=== PATIENT | male | born 1950 | race Caucasian/White ===

== ENCOUNTER → 2017-10-16 | Outpatient (REF) | payer BC, MEDICARE ==
[~2017-10-16] MED LIST: ALB18R INH; ALLO-2 PO; AMOX-559 PO; ATOR20TA22 PO; ATOR20TA65 PO; AZIT-1 PO; CLO75 PO; CLOP75TA43 PO; DIPH-1 PO; DOCU-202 PO; FISH OIL1 CAP PO; FLU45SYR17 IM; FOLI-68 PO; HYDR-2966 PO; INDO-1 PO; LISI-362 PO; LISI20TA29 PO; METO200T12 PO; MULT-1319 PO; NIT4 SL; ONDA4TAB PO; ONDA4TAB9 PO; PANT40TA65 PO; PER PO; POTA20TA94 PO; PRED20TA6 PO
[2017-10-16 14:57] LABS: PLATELET COUNT, AUTOMATED 288 K/uL (150-450)
== END ==
PROVIDERS: ATTEND Nurse Practitioner Family
DX: R19.7 Diarrhea, unspecified (principal)
CPT/HCPCS: 82040; 82247; 82310; 82374; 82435; 82565; 82947; 84075; 84132; 84155; 84295; 84450; 84460; 84520; 85025

== ENCOUNTER 2017-10-18 09:28 | Emergency (ER) | payer MEDICARE, BC ==
[~2017-10-18 09:28] MED LIST changes: -ALB18R INH; -AZIT-1 PO; -DIPH-1 PO; -ONDA4TAB PO
--- NOTE | 2017-10-18 09:30 | ER Report ---
History and Physical Time Seen By MD: 09:29 HPI/ROS CHIEF COMPLAINT: Diarrhea HISTORY OF PRESENT ILLNESS: Patient is a 67-year-old male who presents emergency department for proximally 5-6 days worth of watery diarrhea without abdominal pain. He denies nausea or vomiting. He's having multiple watery stools per day denies any blood or mucus in the stool. Patient is currently on Zithromax antibiotic for treatment of "pneumonia" along with an albuterol inhaler. Patient recently did complete a cruise line vacation. There is no history of diarrhea outbreak on the cruise that he is aware of. His spouse is also symptom-free. Patient denies fevers or chills he denies chest pain or shortness of breath. REVIEW OF SYSTEMS: Constitutional: No fever, no chills. Eyes: No discharge. ENT: No sore throat. Cardiovascular: No chest pain, no palpitations. Respiratory: No cough, no shortness of breath. Gastrointestinal: No abdominal pain, profuse watery diarrhea. Genitourinary: No hematuria. Musculoskeletal: No back pain. Skin: No rashes. Neurological: No headache. Allergies: Coded Allergies: No Known Drug Allergies (Verified , 10/18/17) Home Meds Active Scripts Diphenoxylate Hcl/Atropine (LOMOTIL TABLET) 1 Each Tablet, 1 EACH PO Q4H for diarrhea, #16 TAB 0 Refills Prov:LARISSA LIU MD 10/18/17 Atorvastatin Calcium (ATORVASTATIN CALCIUM) 20 Mg Tablet, 1 TAB PO QDAY, #30 TAB patient needs to schedule an appointment for further refills Prov:GAVIN BARNHART MD 10/14/17 Metoprolol Succinate (METOPROLOL SUCCINATE) 200 Mg Tab.er.24h, 1 TAB PO QDAY, # 90 TAB 1 Refill Prov:GAVIN BARNHART MD 07/01/17 Clopidogrel Bisulfate (PLAVIX) 75 Mg Tablet, 1 TAB PO QDAY, #90 TAB 1 Refill Prov:GAVIN BARNHART MD 03/18/17 Lisinopril (LISINOPRIL) 20 Mg Tablet, 20 MG PO QDAY, #90 TAB 3 Refills Prov:GAVIN BARNHART MD 10/27/16 Reported Medications Albuterol Sulfate (VENTOLIN HFA) 18 Gm Inh, 1-2 PUFF INH 3-4XD, INH 10/18/17 Azithromycin (ZITHROMAX) 250 Mg Tablet, 1 TAB PO QDAY, TAB 10/18/17 Ondansetron (ZOFRAN ODT) 4 Mg Tab.rapdis, 4 MG PO Q12H, TAB.TREASURE 10/18/17 Discontinued Scripts Pantoprazole Sodium (PANTOPRAZOLE SODIUM) 40 Mg Tablet.dr, 1 TAB PO QDAY, #90 TAB.SR 1 Refill Prov:GAVIN BARNHART MD 03/18/17 Nitroglycerin (NITROSTAT) 0.4 Mg Subl, 1 TAB SL Q5MIN Y for chest pain, #30 TAB 0 Refills Take one tab every 5 minutes for chest pain up to 3 times. If chest pain continues go to the ER. Prov:EHSAN QUINONEZ APRN DURABILITY ENGINEER-C 01/05/15 Past Medical/Surgical History Past medical history for hypertension. History of hypercholesterolemia Hx Smoking: Yes (SMOKED 1 PPD FOR 20 YEARS.) Smoking Status: Former Smoker Hx Alcohol Use: Yes Constitutional Vital Sign - Last 24 Hours 10/18/17 10/18/17 10/18/17 10/18/17 09:38 09:39 09:58 10:00 Temp 97.6 Pulse 86 Resp 18 B/P (MAP) 183/108 (133) 183/108 185/103 (130) Pulse Ox 91 91 O2 Delivery Room Air 10/18/17 10/18/17 10/18/17 10/18/17 10:37 10:58 11:00 11:15 Pulse 71 73 B/P (MAP) 187/106 (133) 200/110 (140) Pulse Ox 91 94 10/18/17 10/18/17 11:30 12:30 Pulse 73 B/P (MAP) 166/99 (121) 170/95 (120) Pulse Ox 95 Physical Exam General/Constitutional: Patient is awake, alert, nontoxic and in no acute respiratory distress. Head: Normocephalic and atraumatic. Eyes: Conjunctival clear, Pupils are equal and reactive to light. Extraocular muscles are intact and symmetrical. Sclera are clear and anicteric. Ears:External canals are clear. Tympanic membranes are clear with normal landmarks and light reflex. Nares: No rhinorrhea or bleeding. Turbinates are pink and moist. Oropharyngeal: Mucous membranes are moist. Neck: Supple, no adenopathy. Cardiovascular: Heart is regular rate and rhythm without audible murmurs, rubs or gallops. Pulmonary: Lungs are clear to auscultation bilaterally. There are no wheezes, rales, or rhonchi. Chest rise is symmetrical Abdomen: Soft, nontender, no guarding or peritoneal signs. Extremities: No gross deformities, No peripheral cyanosis. Able to move all 4 extremities. Neuro: Alert and oriented X3, Cranial nerves 2 thru 12 are intact and symmetrical. Patient has normal gait. Skin: No rashes, skin is warm dry and well perfused. Medical Decision Making Data Points Result Diagram: 10/18/17 0945 10/18/17 0945 Laboratory Hematology Test 10/18/17 09:45 10/18/17 10:28 Red Blood Count 4.78 M/uL (4.00-5.60) Mean Corpuscular Volume 103.6 fL (80.0-96.0) Mean Corpuscular Hemoglobin 35.7 pg (26.0-33.0) Mean Corpuscular Hemoglobin Concent 34.4 g/dL (32.0-36.0) Red Cell Distribution Width 13.6 % (11.5-14.5) Mean Platelet Volume 10.0 fL (7.2-11.1) Neutrophils (%) (Auto) 77.0 % (39.4-72.5) Lymphocytes (%) (Auto) 12.1 % (17.6-49.6) Monocytes (%) (Auto) 10.2 % (4.1-12.4) Eosinophils (%) (Auto) 0.3 % (0.4-6.7) Basophils (%) (Auto) 0.4 % (0.3-1.4) Nucleated RBC Relative Count (auto) 0.0 /100WBC Neutrophils # (Auto) 7.5 K/uL (2.0-7.4) Lymphocytes # (Auto) 1.2 K/uL (1.3-3.6) Monocytes # (Auto) 1.0 K/uL (0.3-1.0) Eosinophils # (Auto) 0.0 K/uL (0.0-0.5) Basophils # (Auto) 0.0 K/uL (0.0-0.1) Nucleated RBC Absolute Count (auto) 0.00 K/uL Sodium Level 138 mmol/L (137-145) Potassium Level 3.0 mmol/L (3.5-5.0) Chloride Level 102 mmol/L (98-107) Carbon Dioxide Level 24 mmol/L (22-30) Blood Urea Nitrogen 9 mg/dl (9-21) Creatinine 0.70 mg/dl (0.66-1.25) Glomerular Filtration Rate Calc > 60.0 Random Glucose 109 mg/dl (75-110) Calcium Level 8.8 mg/dl (8.4-10.2) Total Bilirubin 1.4 mg/dl (0.2-1.3) Aspartate Amino Transf (AST/SGOT) 49 U/L (0-35) Alanine Aminotransferase (ALT/SGPT) 47 U/L (0-56) Alkaline Phosphatase 131 U/L (0-126) Total Protein 7.7 gm/dl (6.3-8.2) Albumin 3.6 g/dl (3.5-5.0) Lipase 253 U/L (23-300) Helicobacter pylori IgG Antibody Negative (NEGATIVE) Urine Color Koki Urine Clarity Clear Urine pH 5.0 pH (4.8-9.5) Urine Specific [place] 1.023 Urine Protein Negative mg/dL (NEGATIVE) Urine Glucose (UA) Negative mg/dL (NEGATIVE) Urine Ketones Trace mg/dL (NEGATIVE) Urine Blood Negative (NEGATIVE) Urine Nitrite Negative (NEGATIVE) Urine Bilirubin Negative (NEGATIVE) Urine Urobilinogen 4.0 mg/dL (0.2-1.9) Urine Leukocyte Esterase Negative (NEGATIVE) Urine RBC None /HPF (0-2/HPF) Urine WBC 3 /HPF (0-5/HPF) Urine Squamous Epithelial Cells None /LPF (</=FEW) Urine Bacteria Few /HPF (NONE-FEW) Urine Hyaline Casts Few /LPF (NONE-FEW) Urine Mucus Few /HPF (NONE-FEW) Stool Leukocytes, Qualitative Negative Clostridium Difficile Toxin A & B Negative Clostridium difficile Antigen Negative Chemistry Test 10/18/17 09:45 10/18/17 10:28 White Blood Count 9.7 k/uL (4.5-11.0) Red Blood Count 4.78 M/uL (4.00-5.60) Hemoglobin 17.0 g/dL (14.0-18.0) Hematocrit 49.5 % (42.0-52.0) Mean Corpuscular Volume 103.6 fL (80.0-96.0) Mean Corpuscular Hemoglobin 35.7 pg (26.0-33.0) Mean Corpuscular Hemoglobin Concent 34.4 g/dL (32.0-36.0) Red Cell Distribution Width 13.6 % (11.5-14.5) Platelet Count 293 K/uL (150-450) Mean Platelet Volume 10.0 fL (7.2-11.1) Neutrophils (%) (Auto) 77.0 % (39.4-72.5) Lymphocytes (%) (Auto) 12.1 % (17.6-49.6) Monocytes (%) (Auto) 10.2 % (4.1-12.4) Eosinophils (%) (Auto) 0.3 % (0.4-6.7) Basophils (%) (Auto) 0.4 % (0.3-1.4) Nucleated RBC Relative Count (auto) 0.0 /100WBC Neutrophils # (Auto) 7.5 K/uL (2.0-7.4) Lymphocytes # (Auto) 1.2 K/uL (1.3-3.6) Monocytes # (Auto) 1.0 K/uL (0.3-1.0) Eosinophils # (Auto) 0.0 K/uL (0.0-0.5) Basophils # (Auto) 0.0 K/uL (0.0-0.1) Nucleated RBC Absolute Count (auto) 0.00 K/uL Glomerular Filtration Rate Calc > 60.0 Calcium Level 8.8 mg/dl (8.4-10.2) Total Bilirubin 1.4 mg/dl (0.2-1.3) Aspartate Amino Transf (AST/SGOT) 49 U/L (0-35) Alanine Aminotransferase (ALT/SGPT) 47 U/L (0-56) Alkaline Phosphatase 131 U/L (0-126) Total Protein 7.7 gm/dl (6.3-8.2) Albumin 3.6 g/dl (3.5-5.0) Lipase 253 U/L (23-300) Helicobacter pylori IgG Antibody Negative (NEGATIVE) Urine Color Koki Urine Clarity Clear Urine pH 5.0 pH (4.8-9.5) Urine Specific [place] 1.023 Urine Protein Negative mg/dL (NEGATIVE) Urine Glucose (UA) Negative mg/dL (NEGATIVE) Urine Ketones Trace mg/dL (NEGATIVE) Urine Blood Negative (NEGATIVE) Urine Nitrite Negative (NEGATIVE) Urine Bilirubin Negative (NEGATIVE) Urine Urobilinogen 4.0 mg/dL (0.2-1.9) Urine Leukocyte Esterase Negative (NEGATIVE) Urine RBC None /HPF (0-2/HPF) Urine WBC 3 /HPF (0-5/HPF) Urine Squamous Epithelial Cells None /LPF (</=FEW) Urine Bacteria Few /HPF (NONE-FEW) Urine Hyaline Casts Few /LPF (NONE-FEW) Urine Mucus Few /HPF (NONE-FEW) Stool Leukocytes, Qualitative Negative Clostridium Difficile Toxin A & B Negative Clostridium difficile Antigen Negative Urinalysis Test 10/18/17 10:28 Urine Color Koki Urine Clarity Clear Urine pH 5.0 pH (4.8-9.5) Urine Specific [place] 1.023 Urine Protein Negative mg/dL (NEGATIVE) Urine Glucose (UA) Negative mg/dL (NEGATIVE) Urine Ketones Trace mg/dL (NEGATIVE) Urine Blood Negative (NEGATIVE) Urine Nitrite Negative (NEGATIVE) Urine Bilirubin Negative (NEGATIVE) Urine Urobilinogen 4.0 mg/dL (0.2-1.9) Urine Leukocyte Esterase Negative (NEGATIVE) Urine RBC None /HPF (0-2/HPF) Urine WBC 3 /HPF (0-5/HPF) Urine Squamous Epithelial Cells None /LPF (</=FEW) Urine Bacteria Few /HPF (NONE-FEW) Urine Hyaline Casts Few /LPF (NONE-FEW) Urine Mucus Few /HPF (NONE-FEW) Microbiology Microbiology Date/Time Source Procedure Growth Status 10/18/17 10:28 Stool Stool Culture - Final Complete EKG/Imaging Imaging FACILITY: [facility] - [place] PATIENT NAME: Etienne Arriaza : 1950 MR: [id number] V: [id number] EXAM DATE: [id number] ORDERING PHYSICIAN: LARISSA LIU TECHNOLOGIST: Location: [facility] [place] Patient: Etienne Arriaza : 1950 Visit/Account:[id number] Date of Sevice: 10/18/2017 EXAMINATION: CT abdomen and pelvis with contrast COMPARISON: 11/18/2016 and earlier. HISTORY: Diarrhea. PROCEDURE: Multiplanar contrast enhanced CT of the abdomen and pelvis with 75 mL intravenous Isovue 370. One of the following dose optimization techniques was utilized in the performance of this exam: Automated exposure control; adjustment of the mA and/or kV according to the patient's size; or use of an iterative reconstruction technique. Specific details can be referenced in the facility's radiology CT exam operational policy. FINDINGS: Visualized thorax: Mild lung base volume loss versus scarring. Coronary calcifications. Liver: Probable mild hepatic steatosis. Gallbladder and biliary system: Cholecystectomy. No bile duct dilation. Spleen: Spleen size is normal. Pancreas: Negative. Adrenal glands: Negative. Kidneys and bladder: No renal mass or evidence of an obstructive uropathy. Urinary bladder is unremarkable. Vessels: Advanced aortoiliac and to lesser extent mesenteric atherosclerosis. Infrarenal aorta with fusiform aneurysm measuring 4.7 x 4.4 cm in maximum transverse dimension at the level of the left kidney lower pole, previously 4.4 x 3.9 cm. No periaortic hemorrhage. Dense atherosclerotic calcification along the left common iliac artery likely with high-grade stenosis. Portal venous system and IVC are unremarkable. Bowel and mesentery: Stomach is within normal limits. Small bowel and appendix are unremarkable. Distal descending colon and sigmoid mild diverticulosis. No bowel or mesenteric inflammation. Pelvic organs: Negative. Lymph nodes: No adenopathy. Free air/free fluid: None. Abdominal wall and osseous structures: Abdominal wall is intact. Unchanged sclerosis of the L4-L5 endplates. L5-S1 advanced degenerative disc space loss. There is at least mild canal and moderate lateral recess narrowing at L4-5 and L5-S1. No acute osseous abnormality. IMPRESSION: 1. No findings of acute disease in the abdomen or pelvis. 2. Infrarenal abdominal aortic fusiform aneurysm now measuring 4.7 x 4.4 cm, previously 4.4 x 3.9 cm. Referral to vascular surgery for further evaluation is recommended. 3. 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 4. Mild hepatic steatosis. 5. Additional nonacute findings as detailed above. Report Dictated By: Evaristo Hunt MD at 10/18/2017 12:11 PM Report E-Signed By: Evaristo Hunt MD at 10/18/2017 12:17 PM WSN:[id number] ED Course/Re-evaluation Clinical Indication for ER IV: Hydration, IV Access ED Course 10/18/2017 10:26:39 am plan at this time will be abdominal workup including abdominal lab work, CAT scan stool studies. We'll give IV fluids. Decision to Disposition Date: Oct 18, 2017 Decision to Disposition Time: 12:39 Depart Departure Latest Vital Signs Vital Signs Date Time Temp Pulse Resp B/P (MAP) Pulse Ox O2 Delivery O2 Flow Rate FiO2 10/18/17 12:30 170/95 (120) 10/18/17 11:30 73 95 10/18/17 09:39 97.6 18 Room Air Impression: Primary Impression: Diarrhea Condition: Improved Disposition: HOME OR SELF-CARE Referrals: GER ACEVES MD (PCP) 2 Days If symptoms persist New Scripts Diphenoxylate Hcl/Atropine (LOMOTIL TABLET) 1 Each Tablet 1 EACH PO Q4H for diarrhea, #16 TAB 0 Refills Prov: LARISSA LIU MD 10/18/17 Patient Instructions: Abdominal Aortic Aneurysm (DC), Acute Diarrhea (GEN) Additional Instructions: You had an incidental finding on your CAT scan today that showed an increase in size of your abdominal aortic aneurysm. It is recommended that you schedule a follow-up appointment with a vascular surgeon in the next 2-4 weeks so that this aneurysm can be further evaluated and monitored. [facility] [phone] [id number] [place], [place] Problem Qualifiers Primary Impression: Diarrhea Diarrhea type: unspecified type Qualified Codes: R19.7 - Diarrhea, unspecified LARISSA LIU MD Oct 18, 2017 09:30
[2017-10-18] MEDS ORDERED: AZIT-1 PO (09:52)
[2017-10-18] MEDS ORDERED: ONDA4TAB PO (09:52)
[2017-10-18] MEDS ORDERED: ALB18R INH (09:52)
[2017-10-18 10:01] LABS: PLATELET COUNT, AUTOMATED 293 K/uL (150-450)
[2017-10-18] MEDS ORDERED: IOPAMIDOL 76% 75 ML INFUS BTL 75 ML ONE (10:02)
[2017-10-18] MEDS ORDERED: POTASSIUM CHL 20 MEQ TABCR PO SCH (10:15)
[2017-10-18] MEDS ORDERED: NS(*) 0.9% 1000 ML BAG 1,000 ML IV ONE (10:30)
[2017-10-18] MEDS ORDERED: DIPHENOX/ATROPINE 2.5-0.025MG PO ONE (11:40)
--- NOTE | 2017-10-18 12:21 | RADIOLOGY IMAGING REPORT ---
FACILITY: [facility] - [place] PATIENT NAME: Etienne Arriaza : 1950 MR: [id number] V: [id number] EXAM DATE: ORDERING PHYSICIAN: LARISSA LIU TECHNOLOGIST: Location: [facility] - [place] Patient: Etienne Arriaza : 1950 Visit/Account:[id number] Date of Sevice: 10/18/2017 EXAMINATION: CT abdomen and pelvis with contrast COMPARISON: 11/18/2016 and earlier. HISTORY: Diarrhea. PROCEDURE: Multiplanar contrast enhanced CT of the abdomen and pelvis with 75 mL intravenous Isovue 3 70. One of the following dose optimization techniques was utilized in the performance of this exam: A utomated exposure control; adjustment of the mA and/or kV according to the patient's size; or use of an iterative reconstruction technique. Specific details can be referenced in the facility's radiolo gy CT exam operational policy. FINDINGS: Visualized thorax: Mild lung base volume loss versus scarring. Coronary calcifications. Liver: Probable mild hepatic steatosis. Gallbladder and biliary system: Cholecystectomy. No bile duct dilation. Spleen: Spleen size is normal. Pancreas: Negative. Adrenal glands: Negative. Kidneys and bladder: No renal mass or evidence of an obstructive uropathy. Urinary bladder is unrema rkable. Vessels: Advanced aortoiliac and to lesser extent mesenteric atherosclerosis. Infrarenal aorta with f usiform aneurysm measuring 4.7 x 4.4 cm in maximum transverse dimension at the level of the left kidn ey lower pole, previously 4.4 x 3.9 cm. No periaortic hemorrhage. Dense atherosclerotic calcification along the left common iliac artery likely with high-grade stenosis. Portal venous system and IVC are unremarkable. Bowel and mesentery: Stomach is within normal limits. Small bowel and appendix are unremarkable. Dist al descending colon and sigmoid mild diverticulosis. No bowel or mesenteric inflammation. Pelvic organs: Negative. Lymph nodes: No adenopathy. Free air/free fluid: None. Abdominal wall and osseous structures: Abdominal wall is intact. Unchanged sclerosis of the L4-L5 end plates. L5-S1 advanced degenerative disc space loss. There is at least mild canal and moderate latera l recess narrowing at L4-5 and L5-S1. No acute osseous abnormality. IMPRESSION: 1. No findings of acute disease in the abdomen or pelvis. 2. Infrarenal abdominal aortic fusiform aneurysm now measuring 4.7 x 4.4 cm, previously 4.4 x 3.9 cm. Referral to vascular surgery for further evaluation is recommended. 3. 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 4. Mild hepatic steatosis. 5. Additional nonacute findings as detailed above. Report Dictated By: Evaristo Hunt MD at 10/18/2017 12:11 PM Report E-Signed By: Evaristo Hunt MD at 10/18/2017 12:17 PM WSN:[id number]
[2017-10-18 12:30] VITALS: BP 170/95
[2017-10-18] MEDS ORDERED: DIPH-1 PO (12:37)
== END 2017-10-18 12:51 | disposition home or self-care (01) ==
LOC: ER 09:51
DX: R19.7 Diarrhea, unspecified (principal)
CPT/HCPCS: 74177; 81001; 83630; 83690; 85025; 86677; 87045; 87324; 87449; 96360; 99284; A9270; J7030; Q9967; 82040; 82247; 82310; 82374; 82435; 82565; 82947; 84075; 84132; 84155; 84295; 84450; 84460; 84520; 96361

== ENCOUNTER → 2017-10-30 | Outpatient (CLI) | payer BC ==
[~2017-10-30] MED LIST changes: +ALB18R INH; +AZIT-1 PO; +DIPH-1 PO; +ONDA4TAB PO
[2017-10-30 09:39] LABS: PLATELET COUNT, AUTOMATED 341 K/uL (150-450)
[2017-10-30 09:55] LABS: LDL CHOLESTEROL 87 mg/dl
== END ==
LOC: LAB 08:55
PROVIDERS: ATTEND Internal Medicine
DX: Z12.5 Encounter for screening for malignant neoplasm of prostate (principal); R94.5 Abnormal results of liver function studies; I71.9 Aortic aneurysm of unspecified site, without rupture; I25.10 Atherosclerotic heart disease of native coronary artery without angina pectoris; E78.5 Hyperlipidemia, unspecified
CPT/HCPCS: 36415; 82040; 82247; 82310; 82374; 82435; 82465; 82565; 82947; 83718; 84075; 84132; 84153; 84155; 84295; 84443; 84450; 84460; 84478; 84520; 85025

== ENCOUNTER 2018-10-25 11:04 | Inpatient (IN) | payer MEDICARE, BC ==
[~2018-10-25] VITALS: Ht 177.8 cm; Wt 89.8 kg
[~2018-10-25 11:04] MED LIST changes: -INDO-1 PO; +INDO-21 PO
--- NOTE | 2018-10-25 11:13 | ER Report ---
History and Physical Time Seen By MD: 11:12 Hx. of Stated Complaint: Syncope HPI/ROS 68-year-old male arrives to the emergency room saturations 79% on room air states that on the he was peeling potatoes standing talking to his friends and had a syncopal episode he is on Plavix did fall and hit his head positive loss of consciousness has had a dull headache occipital occipitally since no problems walking or talking . His neck is misstepped no other pain Allergies: Coded Allergies: No Known Drug Allergies (Verified , 10/25/18) Home Meds Active Scripts Atorvastatin Calcium (ATORVASTATIN CALCIUM) 20 Mg Tablet, 1 TAB PO QDAY, #90 TAB 3 Refills patient needs to schedule an appointment for further refills Prov:GAVIN BARNHART MD 10/30/17 Metoprolol Succ 200 Mg Xl Tab (METOPROLOL SUCCINATE 200 MG) 200 Mg Tab.er.24h, 1 TAB PO QDAY, #90 TAB 3 Refills Prov:GAVIN BARNHART MD 10/30/17 Clopidogrel Bisulfate (PLAVIX) 75 Mg Tablet, 1 TAB PO QDAY, #90 TAB 3 Refills Prov:GAVIN BARNHART MD 10/30/17 Lisinopril (LISINOPRIL) 20 Mg Tablet, 20 MG PO BID, #180 TAB 3 Refills Prov:GAVIN BARNHART MD 10/30/17 Past Medical/Surgical History HTN, AAA REPAIR 2017, [place] 2008, [place], ALCOHOL DAILY , GUS Hx Smoking: Yes (SMOKED 1 PPD FOR 20 YEARS.) Smoking Status: Former Smoker Hx Substance Use Disorder: No Hx Alcohol Use: Yes Constitutional Vital Sign - Last 24 Hours 10/25/18 10/25/18 10/25/18 10/25/18 11:13 11:30 11:34 12:00 Temp 98.3 Pulse 97 90 Resp 16 12 22 B/P (MAP) 161/102 159/93 (115) Pulse Ox 79 94 93 O2 Delivery Room Air O2 Flow Rate 2.0 10/25/18 10/25/18 10/25/18 10/25/18 12:08 12:45 13:15 13:30 Pulse 83 86 77 Resp 15 B/P (MAP) 164/93 (116) Pulse Ox 86 93 93 10/25/18 10/25/18 10/25/18/18/19 14:00 14:30 15:00 15:00 Pulse 80 75 77 77 Resp 21 20 16 16 Pulse Ox 92 91 93 93 10/25/18 10/25/18 10/25/18 10/25/18 15:15 15:30 15:32 15:45 Pulse 72 70 78 Resp 11 11 B/P (MAP) 147/95 (112) Pulse Ox 92 92 92 10/25/18 10/25/18 10/25/18 16:00 16:15 16:30 Pulse 71 79 79 Resp 17 12 13 Pulse Ox 93 94 95 Physical Exam 68 YEAR OLD MALE ALERT ANXIOUS, HEMATOMA OCCIPUT HEAD, BEE, TM NON REDDENED, NECK WITH SOME MIDLINE TENDERNESS, HRRM LUNGS DECREASED BILATERAL BASES, ABD SOFT, LIVER MARGIN DOWN 4 Medical Decision Making Data Points Result Diagram: 10/25/18 1120 10/25/18 1120 Laboratory Hematology Test 10/25/18 00:00 10/25/18 10:34 10/25/18 11:20 10/25/18 12:06 Lipase 207 U/L (23-300) Magnesium Level 1.8 mg/dl (1.7-2.2) Red Blood Count 5.26 M/uL (4.00-5.60) Mean Corpuscular Volume 112.8 fL (80.0-96.0) Mean Corpuscular Hemoglobin 37.7 pg (26.0-33.0) Mean Corpuscular Hemoglobin Concent 33.4 g/dL (32.0-36.0) Red Cell Distribution Width 15.4 % (11.5-14.5) Mean Platelet Volume 10.0 fL (7.2-11.1) Neutrophils (%) (Auto) 69.8 % (39.4-72.5) Lymphocytes (%) (Auto) 14.1 % (17.6-49.6) Monocytes (%) (Auto) 13.4 % (4.1-12.4) Eosinophils (%) (Auto) 1.6 % (0.4-6.7) Basophils (%) (Auto) 1.1 % (0.3-1.4) Nucleated RBC Relative Count (auto) 0.2 /100WBC Neutrophils # (Auto) 5.0 K/uL (2.0-7.4) Lymphocytes # (Auto) 1.0 K/uL (1.3-3.6) Monocytes # (Auto) 1.0 K/uL (0.3-1.0) Eosinophils # (Auto) 0.1 K/uL (0.0-0.5) Basophils # (Auto) 0.1 K/uL (0.0-0.1) Nucleated RBC Absolute Count (auto) 0.01 K/uL Peripheral Blood Smear Yes Y/N D-Dimer Quantitative (PE/DVT) 1.36 ug/ml (0-0.50) Sodium Level 141 mmol/L (137-145) Potassium Level 3.3 mmol/L (3.5-5.0) Chloride Level 102 mmol/L (98-107) Carbon Dioxide Level 27 mmol/L (22-30) Blood Urea Nitrogen 6 mg/dl (9-21) Creatinine 0.70 mg/dl (0.66-1.25) Glomerular Filtration Rate Calc > 60.0 Random Glucose 138 mg/dl (75-110) Calcium Level 8.6 mg/dl (8.4-10.2) Total Bilirubin 2.3 mg/dl (0.2-1.3) Aspartate Amino Transf (AST/SGOT) 118 U/L (0-35) Alanine Aminotransferase (ALT/SGPT) 57 U/L (0-56) Alkaline Phosphatase 178 U/L (0-126) Troponin I < 0.012 ng/ml B-Type Natriuretic Peptide 178 pg/ml (0-100) Total Protein 7.7 g/dl (6.3-8.2) Albumin 3.9 g/dl (3.5-5.0) Urine Color Yellow Urine Clarity Clear Urine pH 7.0 pH (4.8-9.5) Urine Specific [place] 1.003 Urine Protein Negative mg/dL (NEGATIVE) Urine Glucose (UA) Negative mg/dL (NEGATIVE) Urine Ketones Negative mg/dL (NEGATIVE) Urine Blood Negative (NEGATIVE) Urine Nitrite Negative (NEGATIVE) Urine Bilirubin Negative (NEGATIVE) Urine Urobilinogen 2.0 mg/dL (0.2-1.9) Urine Leukocyte Esterase Negative (NEGATIVE) Urine RBC <1 /HPF (0-2/HPF) Urine WBC <1 /HPF (0-5/HPF) Urine Squamous Epithelial Cells None /LPF (</=FEW) Urine Bacteria Negative /HPF (NONE-FEW) Urine Mucus None /HPF (NONE-FEW) Test 10/25/18 13:17 Ammonia 12 UMOL/L (9-33) Chemistry Test 10/25/18 00:00 10/25/18 10:34 10/25/18 11:20 10/25/18 12:06 Lipase 207 U/L (23-300) Magnesium Level 1.8 mg/dl (1.7-2.2) White Blood Count 7.1 k/uL (4.5-11.0) Red Blood Count 5.26 M/uL (4.00-5.60) Hemoglobin 19.8 g/dL (14.0-18.0) Hematocrit 59.4 % (42.0-52.0) Mean Corpuscular Volume 112.8 fL (80.0-96.0) Mean Corpuscular Hemoglobin 37.7 pg (26.0-33.0) Mean Corpuscular Hemoglobin Concent 33.4 g/dL (32.0-36.0) Red Cell Distribution Width 15.4 % (11.5-14.5) Platelet Count 258 K/uL (150-450) Mean Platelet Volume 10.0 fL (7.2-11.1) Neutrophils (%) (Auto) 69.8 % (39.4-72.5) Lymphocytes (%) (Auto) 14.1 % (17.6-49.6) Monocytes (%) (Auto) 13.4 % (4.1-12.4) Eosinophils (%) (Auto) 1.6 % (0.4-6.7) Basophils (%) (Auto) 1.1 % (0.3-1.4) Nucleated RBC Relative Count (auto) 0.2 /100WBC Neutrophils # (Auto) 5.0 K/uL (2.0-7.4) Lymphocytes # (Auto) 1.0 K/uL (1.3-3.6) Monocytes # (Auto) 1.0 K/uL (0.3-1.0) Eosinophils # (Auto) 0.1 K/uL (0.0-0.5) Basophils # (Auto) 0.1 K/uL (0.0-0.1) Nucleated RBC Absolute Count (auto) 0.01 K/uL Peripheral Blood Smear Yes Y/N D-Dimer Quantitative (PE/DVT) 1.36 ug/ml (0-0.50) Glomerular Filtration Rate Calc > 60.0 Calcium Level 8.6 mg/dl (8.4-10.2) Total Bilirubin 2.3 mg/dl (0.2-1.3) Aspartate Amino Transf (AST/SGOT) 118 U/L (0-35) Alanine Aminotransferase (ALT/SGPT) 57 U/L (0-56) Alkaline Phosphatase 178 U/L (0-126) Troponin I < 0.012 ng/ml B-Type Natriuretic Peptide 178 pg/ml (0-100) Total Protein 7.7 g/dl (6.3-8.2) Albumin 3.9 g/dl (3.5-5.0) Urine Color Yellow Urine Clarity Clear Urine pH 7.0 pH (4.8-9.5) Urine Specific [place] 1.003 Urine Protein Negative mg/dL (NEGATIVE) Urine Glucose (UA) Negative mg/dL (NEGATIVE) Urine Ketones Negative mg/dL (NEGATIVE) Urine Blood Negative (NEGATIVE) Urine Nitrite Negative (NEGATIVE) Urine Bilirubin Negative (NEGATIVE) Urine Urobilinogen 2.0 mg/dL (0.2-1.9) Urine Leukocyte Esterase Negative (NEGATIVE) Urine RBC <1 /HPF (0-2/HPF) Urine WBC <1 /HPF (0-5/HPF) Urine Squamous Epithelial Cells None /LPF (</=FEW) Urine Bacteria Negative /HPF (NONE-FEW) Urine Mucus None /HPF (NONE-FEW) Test 10/25/18 13:17 Ammonia 12 UMOL/L (9-33) Coagulation Test 10/25/18 11:20 D-Dimer Quantitative (PE/DVT) 1.36 ug/ml Urinalysis Test 10/25/18 12:06 Urine Color Yellow Urine Clarity Clear Urine pH 7.0 pH (4.8-9.5) Urine Specific [place] 1.003 Urine Protein Negative mg/dL (NEGATIVE) Urine Glucose (UA) Negative mg/dL (NEGATIVE) Urine Ketones Negative mg/dL (NEGATIVE) Urine Blood Negative (NEGATIVE) Urine Nitrite Negative (NEGATIVE) Urine Bilirubin Negative (NEGATIVE) Urine Urobilinogen 2.0 mg/dL (0.2-1.9) Urine Leukocyte Esterase Negative (NEGATIVE) Urine RBC <1 /HPF (0-2/HPF) Urine WBC <1 /HPF (0-5/HPF) Urine Squamous Epithelial Cells None /LPF (</=FEW) Urine Bacteria Negative /HPF (NONE-FEW) Urine Mucus None /HPF (NONE-FEW) ED Course/Re-evaluation Clinical Indication for ER IV: Hydration ED Course Patient's oxygen saturation was in the 70s when he walked into the emergency room did receive some Solu-Medrol and a breathing treatment here did he wanted to go home we got him up and walked him in the halls with any sort of exertion and his saturations her back done in the 70s he does have a distant smoking history has never been worked up for COPD isn't has no oxygen at home I did talk to hospitalist we will admit him with hypoxia and syncopal episode Re-evaluation Sats over 90% on 4 L I did talk to Dr. Sunny Villavicencio will admit him for hypoxia Decision to Disposition Date: Oct 25, 2018 Decision to Disposition Time: 16:07 Depart Departure Latest Vital Signs Vital Signs Date Time Temp Pulse Resp B/P (MAP) Pulse Ox O2 Delivery O2 Flow Rate FiO2 10/25/18 16:30 79 13 95 10/25/18 15:32 147/95 (112) 10/25/18 11:34 2.0 10/25/18 11:13 98.3 Room Air Impression: Primary Impression: Hypoxia Additional Impressions: Syncope Abnormal liver function test Condition: Improved Disposition: Admitted from ER Referrals: GAVIN BARNHART MD (PCP) Problem Qualifiers GINA GUEVARA Oct 25, 2018 11:13
[2018-10-25] MEDS ORDERED: NS(*) 0.9% 1000 ML BAG 1,000 ML IV ONE (11:22)
[2018-10-25 11:36] LABS: PLATELET COUNT, AUTOMATED 258 K/uL (150-450)
--- NOTE | 2018-10-25 12:11 | RADIOLOGY IMAGING REPORT ---
[place] [facility] [place] NAME: Etienne Arriaza : 1950 MR: [id number] V: [id number] EXAM DATE: ORDERING PHYSICIAN: GINA GUEVARA TECHNOLOGIST: [facility] Patient: Etienne Arriaza : 1950 Visit/Account:[id number] Date of Sevice: 10/25/2018 Exam type: CHEST SINGLE AP History: syncope Comparison: July 13, 2015. Findings: There is been a slight increase in the interstitial markings throughout the lungs. No evidence of pl eural effusions. The cardiac silhouette appears normal in size. There is no evidence of a pneumotho rax or pneumomediastinum. IMPRESSION: 1. Slight increase in interstitial markings of the lungs. This could represent mild interstitial pu lmonary edema or interstitial infiltrates. Report Dictated By: Cesia Olson MD at 10/25/2018 12:05 PM Report E-Signed By: Cesia Olson MD at 10/25/2018 12:06 PM WSN:[email or web address]
--- NOTE | 2018-10-25 12:14 | EKG ---
FACILITY: [facility] - [place] PATIENT NAME: IZZY MITCHELL : [id number] MR: [id number] V: [id number] EXAM DATE: ORDERING PHYSICIAN: GINA GUEVARA TECHNOLOGIST: JOSE FRANCISCO Test Reason : FALL Blood Pressure : / mmHG Vent. Rate : 085 BPM Atrial Rate : 085 BPM P-R Int : 226 ms QRS Dur : 106 ms QT Int : 400 ms P-R-T Axes : 055 042 023 degrees QTc Int : 476 ms Sinus rhythm with 1st degree AV block with occasional premature ventricular complexes Probable biatrial enlargement Artfact in V2 Nonspecific ST findings Confirmed by MICHELLE GARNETT ([id number]) on 10/25/2018 8:39:08 PM Referred By: ALEXA Confirmed By:MICHELLE GARNETT
[2018-10-25] MEDS ORDERED: NS(*) 0.9% 50 ML BAG 50 ML ONE (12:19)
[2018-10-25] MEDS ORDERED: IOPAMIDOL 76% 100 ML INFUS BTL 100 ML ONE (12:19)
--- NOTE | 2018-10-25 13:41 | RADIOLOGY IMAGING REPORT ---
[place] [facility] [place] Etienne Arriaza : 1950 MR: [id number] V: [id number] EXAM DATE: ORDERING PHYSICIAN: GINA GUEVARA TECHNOLOGIST: [place] [facility] [place] Etienne Arriaza : 1950 Visit/Account:[id number] Date of Sevice: 10/25/2018 CT CTA CHEST W & W/O CON HISTORY: Shortness of breath ADDITIONAL HISTORY: None. TECHNIQUE: CTA chest with intravenous contrast. Axial imaging acquired following administration of IV contrast timed for maximum opacification of the pulmonary arterial vasculature. Slab 3-D MIP ricardo nstructed images were also created for further evaluation and interpretation. Reconstruction of the [facility] data set includes multiplanar 2-D in the sagittal and coronal planes and 3-D reconstructed maylin nal slab MIP series. 3-D images were created by the technologist.Dose Lowering Technique One of the following dose optimization techniques was utilized in the performance of this exam: Autom ated exposure control; adjustment of the mA and/or kV according to the patient's size; or use of an i terative reconstruction technique. Specific details can be referenced in the facility's radiology C T exam operational policy. CONTRAST: 75 mL Isovue-370 COMPARISON: October 20, 2011 FINDINGS: Lungs/pleura: There patchy areas of airspace consolidation in the lower lobes in addition to interst itial prominence in the dependent portion of both lower lobes. There is also scattered pleural densi ties seen bilaterally that have increased in the interim. No evidence of pleural effusions Heart/vessels: There is no evidence of pulmonary emboli. There are extensive calcifications in the thoracic aorta and branch vessels including advanced coronary artery calcifications Mediastinum/lymph nodes: There is mildly prominent bilateral hilar and mediastinal adenopathy that h as remained relatively unchanged other than a slight increase in the degree of subcarinal adenopathy Visualized upper abdomen: Please see today's CT of the abdomen and pelvis Bones/soft tissues: Extensive spondylotic changes of the thoracic spine Additional findings: None IMPRESSION: No evidence of pulmonary emboli Severe atherosclerotic calcifications There are patchy areas of airspace consolidation the lower lobes in addition to interstitial prominen ce the dependent portion of both lower lobes. This could represent an acute infectious/inflammatory process. Short-term interval follow-up recommended. Also noted are scattered areas of pleural densi ty that have increased slightly since the prior examination. This could represent progression of chr onic thickening although again short-term interval follow-up recommended Mildly prominent hilar mediastinal adenopathy that remains relatively unchanged other than a slight i ncrease in the subcarinal adenopathy. This could be reactive although could be followed concurrently with the above-mentioned lung findings Report Dictated By: Cesia Olson MD at 10/25/2018 1:20 PM Report E-Signed By: Cesia Olson MD at 10/25/2018 1:35 PM WSN:[email or web address]
--- NOTE | 2018-10-25 13:53 | RADIOLOGY IMAGING REPORT ---
FACILITY: [facility] PATIENT NAME: Etienne Arriaza : 1950 MR: [id number] V: [id number] EXAM DATE: ORDERING PHYSICIAN: GINA GUEVARA TECHNOLOGIST: Location: [facility] Patient: Etienne Arriaza : 1950 Visit/Account:[id number] Date of Sevice: 10/25/2018 EXAMINATION: CT head without IV contrast HISTORY: Syncope. COMPARISON: None. TECHNIQUE: Contiguous axial images were obtained from the skull base to the vertex without intraven ous contrast. Sagittal and coronal reformatted images are also submitted. One of the following dose optimization techniques was utilized in the performance of this exam: Autom ated exposure control; adjustment of the mA and/or kV according to the patient's size; or use of an i terative reconstruction technique. Specific details can be referenced in the facility's radiology C T exam operational policy. FINDINGS: Brain volume: Normal. Ventricles: Normal. Acute ischemic changes: None. Hemorrhage: No acute intracranial hemorrhage. Masses/edema: None. Troncoso-white: Negative. White matter: Patchy hypodensities in the deep white matter bilaterally. Vessels: Calcified plaque of the vertebral arteries and carotid siphons at the skull base. Extra-axial: Negative. Calvarium/scalp: No acute fracture. Skull base/visualized face: Negative. Visualized sinuses/orbits: Negative. IMPRESSION: 1. No acute fracture, hemorrhage or intracranial mass lesion. No CT evidence of acute infarct. 2. [id number] nonspecific white matter disease is suspicious for chronic small vessel ischemia . Report Dictated By: Mariah Mccullough MD at 10/25/2018 1:48 PM Report E-Signed By: Mariah Mccullough MD at 10/25/2018 1:50 PM WSN:[id number]
--- NOTE | 2018-10-25 14:00 | RADIOLOGY IMAGING REPORT ---
FACILITY: [facility] PATIENT NAME: Etienne Arriaza : 1950 MR: [id number] V: [id number] EXAM DATE: [id number] ORDERING PHYSICIAN: GINA GUEVARA TECHNOLOGIST: Location: [facility] Patient: Etienne Arriaza : 1950 Visit/Account:[id number] Date of Sevice: 10/25/2018 EXAMINATION: CT cervical spine without IV contrast HISTORY: Trauma, syncope. COMPARISON: Cervical spine MRI report from 06/10/2013. TECHNIQUE: Axial images were obtained from the skull base through the upper thoracic spine without I V contrast administration. Coronal and sagittal reformatted images were obtained from the axial [facility] e data. One of the following dose optimization techniques was utilized in the performance of this exam: Autom ated exposure control; adjustment of the mA and/or kV according to the patient's size; or use of an i terative reconstruction technique. Specific details can be referenced in the facility's radiology C T exam operational policy. FINDINGS: Alignment: Straightening of the cervical spine with mild focal kyphosis at C4-5. Cranio-cervical junction: Moderate to severe joint space narrowing, sclerosis and bony spurring of th e atlantoaxial joint, with a small pannus containing calcifications. Vertebral bodies: Negative. Posterior elements: There is multilevel facet and uncovertebral hypertrophy. Bilateral C4-C6 laminec tomies. Hardware: None. Disc spaces: Multilevel moderate to severe disc space narrowing and endplate sclerosis, worst from C4 -5 through C6-7. Soft tissues: Heavy calcified plaque of both carotid bulbs and the visualized great vessels. Visualized upper chest: Negative. IMPRESSION: 1. No acute fracture of the cervical spine. 2. Multilevel moderate to severe degenerative disc disease, facet and uncovertebral arthropathy. 3. Straightening of the cervical spine with mild focal kyphosis at C4-5 could be positional, related to muscle spasm or a cervical collar. 4. Bilateral C4-C6 laminectomies. Report Dictated By: Mariah Mccullough MD at 10/25/2018 1:50 PM Report E-Signed By: Mariah Mccullough MD at 10/25/2018 1:55 PM WSN:[id number]
--- NOTE | 2018-10-25 14:07 | RADIOLOGY IMAGING REPORT ---
FACILITY: [facility] - [place] PATIENT NAME: Etienne Arriaza : 1950 MR: [id number] V: [id number] EXAM DATE: [id number] ORDERING PHYSICIAN: GINA GUEVARA TECHNOLOGIST: Location: [facility] - [place] Patient: Etienne Arriaza : 1950 Visit/Account:[id number] Date of Sevice: 10/25/2018 CT ABDOMEN PELVIS W/ CON Fell on Thursday, on blood thinners HISTORY: ELEVATED LFT TECHNIQUE: Following administration of IV contrast contiguous axial images acquired through the abdom en/pelvis. Coronal and sagittal reformatting also performed.Dose Lowering Technique One of the following dose optimization techniques was utilized in the performance of this exam: Autom ated exposure control; adjustment of the mA and/or kV according to the patient's size; or use of an i terative reconstruction technique. Specific details can be referenced in the facility's radiology C T exam operational policy. CONTRAST: 75 mL Isovue-370 COMPARISON: CT abdomen and pelvis October 18, 2017 FINDINGS: Visualized lung bases: Please see today's CTA of the chest dictation Hepatobiliary: Liver appears diffusely heterogeneous with a lobular contour and hypertrophy of the c audate lobe. The appearance is suggestive of cirrhosis. There is partial recanalization of the umbi lical vein Focal area of decreased attenuation within the caudate lobe may represent an area of focal fatty infiltration although space-occupying lesion cannot be totally excluded. There are postsurgic al changes from a cholecystectomy Spleen: Negative. Adrenals: Negative. Pancreas: Negative. Kidneys ureters or bladder: There is mild perinephric stranding bilaterally Genitalia: Negative. GI: There is extensive diverticulosis of the left-sided colon although no CT evidence of acute diver ticulitis. Appendix does not appear inflamed . Vessels/spaces/nodes: Severe atherosclerotic calcifications are again seen throughout the abdomen and pelvis. Fusiform infrarenal abdominal aortic aneurysm is slightly increased in size now measuring 4 .9 x 4.4 cm previously measuring 4.7 x 4.4 cm. There has been placement of an aorto biiliac endograf t. The contrast was imaged in the portal venous phase therefore the lumen of the aorta and grafts ar e not well evaluated. The left iliac lumen however appears darker than the right iliac suggesting po ssible thrombus.. Suspected high-grade stenosis at the left common iliac arteries again seen. There is also been placement of a femorofemoral graft traversing the subcutaneous soft tissues in the lowe r pelvis. There are shotty retroperitoneal lymph nodes Bones/soft tissues: There extensive spondylotic changes lumbar spine. Additional findings: None pertinent. IMPRESSION: The liver appears diffusely heterogeneous with a lobular contour and hypertrophy of the caudate lobe. The appearance is suggestive of cirrhosis. There is a focal area of decreased attenuation the caud ate lobe which may represent an area of focal fatty infiltration although a space-occupying lesion ca nnot be totally excluded given the cirrhotic appearance to the liver. Further evaluation with MR may be helpful Postsurgical changes from a cholecystectomy Diverticulosis left-sided of the colon although no CT evidence of acute diverticulitis There are severe atherosclerotic calcifications throughout the abdomen and pelvis with a slight incre ase in the fusiform infrarenal abdominal aortic aneurysm when compared the prior study. The aneurysm now measures 4.9 x 4.4 cm, previously measuring 4.7 x 4.4 cm. There has some placement of an aortic biiliac endograft. The examination was performed in the portal venous phase therefore arterial eval uation of the aortic lumen and grafts was not performed. The left iliac lumen however appear darker than the right iliac lumen suggesting possible thrombus. There is a femorofemoral graft traversing the subcutaneous soft tissues of the lower pelvis.. Report Dictated By: Cesia Olson MD at 10/25/2018 1 36 PM Report E-Signed By: Cesia Olson MD at 10/25/2018 2:03 PM WSN:[email or web address]
[2018-10-25] MEDS ORDERED: PROPOFOL(*)1000 MG/100 ML VIAL 100 ML IV PRN (14:45)
[2018-10-25] MEDS ORDERED: DIPHTH/TETANUS/ACEL. PERTUSSIS IM ONLY ONE (15:55)
[2018-10-25] MEDS ORDERED: FUROSEMIDE 40 MG/4 ML VIAL IVP ONE (16:10)
[2018-10-25] MEDS ORDERED: methylPREDNIS SUCC 125 MG/2ML IVP ONE (16:10)
[2018-10-25 17:46] VITALS: BP 169/95
[2018-10-25] MEDS ORDERED: NS(*) 0.9% 1000 ML BAG 1,000 ML IV PRN (18:44)
[2018-10-25] MEDS ORDERED: FLUSH 10 ML SYR IVP PRN (18:45)
[2018-10-25] MEDS ORDERED: ALBUTEROL 2.5 MG/3 ML NEB NEB PRN (18:45)
--- NOTE | 2018-10-25 19:13 | History & Physical ---
History of Present Illness Chief Complaint Passed out History of Present Illness 68yo male with PMHx significant for CAD s/p DE and stenting, AAA s/p endograft placement, HTN, Hyperlipidemia. He also has a history of tobacco use with possible COPD. 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 He denies any other symptoms such as CP/SOB/palpitations/focal weakness. This was witnessed by a friend, who reported the patient "went down slowly" and then fell backwards. No seizure activity was noted. No incontinence. He states he felt "whoozy" for a short time, but awoke right away. He did not seek any evaluation/treatment at that time. He reports some cough that has been productive in the morning with a small amount of sputum for the past several days. He has not appreciated any fever. He has noted some dyspnea with activities. He has not appreciated any audible wheezing. He was evaluated in the ER. His CT pulmonary angiogram was negative for PE, but showed possible patchy bilateral infiltrates. He was recommended for admission. History Problems: (1) Aortic aneurysm Status: Chronic (2) Coronary artery disease Status: Chronic (3) Gout, unspecified Status: Chronic (4) Acute myocardial infarction, subendocardial infarction Status: Resolved (5) Essential hypertension Status: Chronic (6) Hyperlipidemia Status: Chronic (7) S/P laparoscopic cholecystectomy Status: Resolved Home Meds Active Scripts Atorvastatin Calcium (ATORVASTATIN CALCIUM) 20 Mg Tablet, 1 TAB PO QDAY, #90 TAB 3 Refills patient needs to schedule an appointment for further refills Prov:GAVIN BARNHART MD 10/30/17 Metoprolol Succ 200 Mg Xl Tab (METOPROLOL SUCCINATE 200 MG) 200 Mg Tab.er.24h, 1 TAB PO QDAY, #90 TAB 3 Refills Prov:GAVIN BARNHART MD 10/30/17 Clopidogrel Bisulfate (PLAVIX) 75 Mg Tablet, 1 TAB PO QDAY, #90 TAB 3 Refills Prov:GAVIN BARNHART MD 10/30/17 Lisinopril (LISINOPRIL) 20 Mg Tablet, 20 MG PO BID, #180 TAB 3 Refills Prov:GAVIN BARNHART MD 10/30/17 Allergies: Coded Allergies: No Known Drug Allergies (Verified , 10/25/18) Patient History: FH: CABG (coronary artery bypass surgery) MOTHER, , Age:60 years and older FH: cancer FATHER, , Age:63 (Head and Neck) MOTHER, , Age:60 years and older FH: myocardial infarction Maternal Grandmother , , Age:Unknown Paternal Grandfather, , Age:72 FH: stroke Paternal Grandfather, , Age:72 FH: sudden FATHER, , Age:63 (House Explosion) Hypercholesterolemia MOTHER, , Age:60 years and older BROTHER OR SISTER (Brother ), Age:67 BROTHER OR SISTER (Sister), Age:64 Hypertension MOTHER, , Age:60 years and older Paternal Grandfather, , Age:72 Hx Smoking: Yes (SMOKED 1 PPD FOR 20 YEARS.) Smoking Status: Former Smoker When Quit Tobacco?: 1993 Caffeine Intake: Coffee, Tea Caffeine/Cups Per Day: 2 Hx Alcohol Use: Yes Alcohol Used: Liquor Hx Substance Use Disorder: No Social Drug Use: Never History of IV Drug Use: No Review of Systems Constitutional: No Fever, No Chills Neurological: Syncope Eyes: No Vision Change, No Loss of Vision ENT: No Hearing Loss Cardiovascular: No Chest Pain, No Palpitations Respiratory: Shortness of Breath, Cough; No Wheezing Gastrointestinal: No Nausea, No Vomiting, No Diarrhea, No Early Satiety, No Hematemesis, No Hematochezia, No Melena, No Abdominal Pain Genitourinary: No Dysuria Exam Vital Signs Vital Signs Date Time Temp Pulse Resp B/P (MAP) Pulse Ox O2 Delivery O2 Flow Rate FiO2 10/25/18 17:46 98.4 20 169/95 (119) 91 Nasal Cannula 2.0 10/25/18 16:45 74 General Appearance: Alert, Awake Neuro: No Gross deficits Eyes: PERRLA ENT: Oropharynx Clear Cardiovascular: Regular Rate and Rhythm, No JVD Respiratory: Other (Rales at both bases/no wheezes) Chest: No Tenderness GI: Abd Soft and Non-Tender : No CVA Tenderness Lymph: No Adenopathy Extremities: Warm, Perfused, Edema (1+ both LE with left slightly > right) Integumentary: Skin Intact without Lesion / Mass Psych: Alert & Oriented X3 Medical Decision Making Data Points Result Diagram: 10/25/18 1120 10/25/18 1120 Item Value Date Time Albumin 3.9 g/dl 10/25/18 1120 Total Protein 7.7 g/dl 10/25/18 1120 B-Type Natriuretic Peptide 178 pg/ml H 10/25/18 1120 Troponin I < 0.012 ng/ml 10/25/18 1120 Alkaline Phosphatase 178 U/L H 10/25/18 1120 Ammonia 12 UMOL/L 10/25/18 1317 Alanine Aminotransferase (ALT/SGPT) 57 U/L H 10/25/18 1120 Aspartate Amino Transf (AST/SGOT) 118 U/L H 10/25/18 1120 Total Bilirubin 2.3 mg/dl H 10/25/18 1120 Calcium Level 8.6 mg/dl 10/25/18 1120 Magnesium Level 1.8 mg/dl 10/25/18 1034 Urine Mucus None /HPF 10/25/18 1206 Urine Bacteria Negative /HPF 10/25/18 1206 Urine Squamous Epithelial Cells None /LPF 10/25/18 1206 Urine WBC <1 /HPF 10/25/18 1206 Urine RBC <1 /HPF 10/25/18 1206 Urine Leukocyte Esterase Negative 10/25/18 1206 Urine Urobilinogen 2.0 mg/dL 10/25/18 1206 Urine Bilirubin Negative 10/25/18 1206 Urine Nitrite Negative 10/25/18 1206 Urine Blood Negative 10/25/18 1206 Urine Ketones Negative mg/dL 10/25/18 1206 Urine Glucose (UA) Negative mg/dL 10/25/18 1206 Urine Protein Negative mg/dL 10/25/18 1206 Urine Specific [place] 1.003 10/25/18 1206 Urine pH 7.0 pH 10/25/18 1206 Urine Clarity Clear 10/25/18 1206 Urine Color Yellow 10/25/18 1206 D-Dimer Quantitative (PE/DVT) 1.36 ug/ml H 10/25/18 1120 EKG / Imaging Imaging PATIENT NAME: Etienne Arriaza : 1950 MR: [id number] V: [id number] EXAM DATE: ORDERING PHYSICIAN: GINA GUEVARA TECHNOLOGIST: Location: [facility] Patient: Etienne Arriaza : 1950 Visit/Account:[id number] Date of Sevgricelda: 10/25/2018 CT CTA CHEST W & W/O CON HISTORY: Shortness of breath ADDITIONAL HISTORY: None. TECHNIQUE: CTA chest with intravenous contrast. Axial imaging acquired following administration of IV contrast timed for maximum opacification of the pulmonary arterial vasculature. Slab 3-D MIP reconstructed images were also created for further evaluation and interpretation. Reconstruction of the source data set includes multiplanar 2-D in the sagittal and coronal planes and 3-D reconstructed coronal slab MIP series. 3-D images were created by the technologist.Dose Lowering Technique One of the following dose optimization techniques was utilized in the p erformance of this exam: Automated exposure control; adjustment of the mA and/or kV according to the patient's size; or use of an iterative reconstruction technique. Specific details can be referenced in the facility's radiology CT exam operational policy. CONTRAST: 75 mL Isovue-370 COMPARISON: October 20, 2011 FINDINGS: Lungs/pleura: There patchy areas of airspace consolidation in the lower lobes in addition to interstitial prominence in the dependent portion of both lower lobes. There is also scattered pleural densities seen bilaterally that have increased in the interim. No evidence of pleural effusions Heart/vessels: There is no evidence of pulmonary emboli. There are extensive calcifications in the thoracic aorta and branch vessels including advanced coronary artery calcifications Mediastinum/lymph nodes: There is mildly prominent bilateral hilar and mediastinal adenopathy that has remained relatively unchanged other than a slight increase in the degree of subcarinal adenopathy Visualized upper abdomen: Please see today's CT of the abdomen and pelvis Bones/soft tissues: Extensive spondylotic changes of the thoracic spine Additional findings: None IMPRESSION: No evidence of pulmonary emboli Severe atherosclerotic calcifications There are patchy areas of airspace consolidation the lower lobes in addition to interstitial prominence the dependent portion of both lower lobes. This could represent an acute infectious/inflammatory process. Short-term interval follow- up recommended. Also noted are scattered areas of pleural density that have increased slightly since the prior examination. This could represent progression of chronic thickening although again short-term interval follow-up recommended Mildly prominent hilar mediastinal adenopathy that remains relatively unchanged other than a slight increase in the subcarinal adenopathy. This could be reactive although could be followed concurrently with the above-mentioned lung findings Report Dictated By: Cesia Olson MD at 10/25/2018 1:20 PM Report E-Signed By: Cesia Olson MD at 10/25/2018 1:35 PM WSN:[id number] PATIENT NAME: Etienne Arriaza : 1950 MR: [id number] V: [id number] EXAM DATE: ORDERING PHYSICIAN: GINA GUEVARA TECHNOLOGIST: Location: [facility] Patient: Etienne Arriaza : 1950 Visit/Account:[id number] Date of Sevice: 10/25/2018 CT ABDOMEN PELVIS W/ CON Fell on Thursday, on blood thinners HISTORY: ELEVATED LFT TECHNIQUE: Following administration of IV contrast contiguous axial images acquired through the abdomen/pelvis. Coronal and sagittal reformatting also performed.Dose Lowering Technique One of the following dose optimization techniques was utilized in the performance of this exam: Automated exposure control; adjustment of the mA and/or kV according to the patient's size; or use of an iterative reconstruction technique. Specific details can be referenced in the facility's radiology CT exam operational policy. CONTRAST: 75 mL Isovue-370 COMPARISON: CT abdomen and pelvis October 18, 2017 FINDINGS: Visualized lung bases: Please see today's CTA of the chest dictation Hepatobiliary: Liver appears diffusely heterogeneous with a lobular contour and hypertrophy of the caudate lobe. The appearance is suggestive of cirrhosis. There is partial recanalization of the umbilical vein Focal area of decreased attenuation within the caudate lobe may represent an area of focal fatty infiltration although space-occupying lesion cannot be totally excluded. There are postsurgical changes from a cholecystectomy Spleen: Negative. Adrenals: Negative. Pancreas: Negative. Kidneys ureters or bladder: There is mild perinephric stranding bilaterally Genitalia: Negative. GI: There is extensive diverticulosis of the left-sided colon although no CT evidence of acute diverticulitis. Appendix does not appear inflamed . Vessels/spaces/nodes: Severe atherosclerotic calcifications are again seen throughout the abdomen and pelvis. Fusiform infrarenal abdominal aortic aneurysm is slightly increased in size now measuring 4.9 x 4.4 cm previously measuring 4.7 x 4.4 cm. There has been placement of an aorto biiliac endograft. The contrast was imaged in the portal venous phase therefore the lumen of the aorta and grafts are not well evaluated. The left iliac lumen however appears darker than the right iliac suggesting possible thrombus.. Suspected high-grade stenosis at the left common iliac arteries again seen. There is also been placement of a femorofemoral graft traversing the subcutaneous soft tissues in the lower pelvis. There are shotty retroperitoneal lymph nodes Bones/soft tissues: There extensive spondylotic changes lumbar spine. Additional findings: None pertinent. IMPRESSION: The liver appears diffusely heterogeneous with a lobular contour and hypertrophy of the caudate lobe. The appearance is suggestive of cirrhosis. There is a focal area of decreased attenuation the caudate lobe which may represent an area of focal fatty infiltration although a space-occupying lesion cannot be totally excluded given the cirrhotic appearance to the liver. Further evaluation with MR may be helpful Postsurgical changes from a cholecystectomy Diverticulosis left-sided of the colon although no CT evidence of acute diverticulitis There are severe atherosclerotic calcifications throughout the abdomen and pelvis with a slight increase in the fusiform infrarenal abdominal aortic a neurysm when compared the prior study. The aneurysm now measures 4.9 x 4.4 cm, previously measuring 4.7 x 4.4 cm. There has some placement of an aortic biiliac endograft. The examination was performed in the portal venous phase therefore arterial evaluation of the aortic lumen and grafts was not performed. The left iliac lumen however appear darker than the right iliac lumen suggesting possible thrombus. There is a femorofemoral graft traversing the subcutaneous soft tissues of the lower pelvis.. Report Dictated By: Cesia Olson MD at 10/25/2018 1 36 PM Report E-Signed By: Cesia Olson MD at 10/25/2018 2:03 PM WSN:[id number] PATIENT NAME: Etienne Arriaza : 1950 MR: [id number] V: [id number] EXAM DATE: ORDERING PHYSICIAN: GINA GUEVARA TECHNOLOGIST: Location: [facility] Patient: Etienne Arriaza : 1950 Visit/Account:[id number] Date of Sevice: 10/25/2018 EXAMINATION: CT head without IV contrast HISTORY: Syncope. COMPARISON: None. TECHNIQUE: Contiguous axial images were obtained from the skull base to the vertex without intravenous contrast. Sagittal and coronal reformatted images are also submitted. One of the following dose optimization techniques was utilized in the performance of this exam: Automated exposure control; adjustment of the mA and/or kV according to the patient's size; or use of an iterative reconstruction technique. Specific details can be referenced in the facility's radiology CT exam operational policy. FINDINGS: Brain volume: Normal. Ventricles: Normal. Acute ischemic changes: None. Hemorrhage: No acute intracranial hemorrhage. Masses/edema: None. [place]-white: Negative. White matter: Patchy hypodensities in the deep white matter bilaterally. Vessels: Calcified plaque of the vertebral arteries and carotid siphons at the skull base. Extra-axial: Negative. Calvarium/scalp: No acute fracture. Skull base/visualized face: Negative. Visualized sinuses/orbits: Negative. IMPRESSION: 1. No acute fracture, hemorrhage or intracranial mass lesion. No CT evidence of acute infarct. 2. [id number] nonspecific white matter disease is suspicious for chronic small vessel ischemia. Report Dictated By: Mariah Mccullough MD at 10/25/2018 1:48 PM Report E-Signed By: Mariah Mccullough MD at 10/25/2018 1:50 PM WSN:[id number] Assessment and Plan Problems: (1) Syncope Status: Acute Assessment & Plan: Will admit to telemetry to monitor for any dysrhythmias, check echocardiogram, watch closely. No obvious etiology at this point. (2) Atypical pneumonia Status: Acute Assessment & Plan: It appears he may have an atypical pneumonia with hypoxia. Will place on IV Rocephin and doxycycline. Will give supplemental oxygen and respiratory treatments as needed. Blood cultures had not been obtained in the ER. (3) Hypoxia Status: Acute Assessment & Plan: Due to atypical pneumonia and possible underlying COPD. (4) Coronary artery disease Status: Chronic Assessment & Plan: Will continue his metoprolol, statin, and Plavix. (5) Essential hypertension Status: Chronic Assessment & Plan: He will be continued on the metoprolol, lisinopril, nifedipine. Monitor BPs. (6) Hyperlipidemia Status: Chronic Assessment & Plan: Continue atorvastatin. Copies to: GAVIN BARNHART MD ; Venous Thromboembolism Antithrombotics Is Pt On Any Antithrombotics?: Yes Exam Sepsis Risk: No Definite Risk MICHELLE GARNETT MD Oct 25, 2018 19:13
[2018-10-25] MEDS ORDERED: KCL (*) 20 MEQ/100 ML PREMIX 100 ML IV ONE (19:15)
[2018-10-25] MEDS ORDERED: cefTRIAXone(*) 1 GM VIAL 1 GM in NS(*) 0.9% 100 ML ADDVANT BAG 100 ML IVPB SCH (19:30)
[2018-10-25 20:08] VITALS: BP 134/77
[2018-10-25] MEDS ORDERED: LISINOPRIL 20 MG TAB PO SCH (21:00)
[2018-10-25] MEDS ORDERED: NS(*) 0.9% 500 ML BAG 500 ML ONE (21:19)
[2018-10-25] MEDS: DOXYCYCLINE HYCL 100 MG VIAL 100 MG in NS(*) 0.9% 250 ML BAG 250 ML IV SCH (21:44)
[2018-10-26 02:29] VITALS: BP 131/89
[2018-10-26 06:00] LABS: PLATELET COUNT, AUTOMATED 187 K/uL (150-450)
[2018-10-26 06:48] VITALS: BP 156/96
[2018-10-26 08:19] VITALS: Ht 177.8 cm; Wt 89.8 kg
[2018-10-26] MEDS: DOXYCYCLINE HYCL 100 MG VIAL 100 MG in NS(*) 0.9% 250 ML BAG 250 ML IV SCH (08:54)
[2018-10-26] MEDS: ENOXAPARIN 40 MG/0.4ML SYR SC SCH ×2 (08:59→09:00)
[2018-10-26] MEDS ORDERED: NIFEdipine XL 30 MG TABCR PO SCH (09:00)
[2018-10-26] MEDS ORDERED: METOPROLOL SUCC XL 50 MG TABCR 50 MG TAB.ER.24H PO SCH (09:00)
[2018-10-26] MEDS ORDERED: ATORVASTATIN 10 MG TAB PO SCH (09:00)
[2018-10-26] MEDS ORDERED: CLOPIDOGREL BISULFATE 75MG TAB PO SCH (09:00)
[2018-10-26] MEDS ORDERED: PANT40TA65 PO (09:03)
[2018-10-26] MEDS ORDERED: LISI-362 PO (09:03)
[2018-10-26] MEDS ORDERED: PANTOPRAZOLE SOD 40 MG TABEC PO SCH (10:11)
--- NOTE | 2018-10-26 11:30 | Antimicrobial Stewardship ---
Antimicrobial Stewardship Empiricly appropriate: Yes (Doxycycline + Ceftriaxone) Significant PMH: Yes (CAD s/p stents, AAA endograft, HTN, HL, Gout, COPD) Approriate Cultures done: No (No cultures done in ED) Determine cumulative duration: Today is day 2 Determine standard duration: Treatment duration is 7-10 days with doxy/ceftriaxone Comment 68 yo M who presented with syncope, oxygen sats 79% on room air on admission. PMH incudes CAD s/p stenting, AAA endograft, HTN, HL, COPD, Gout. Tmax afebrile WBC 7.1 -->6.3 Neuts 69.8% --> 88.7 % (secondary to steroids) Chest Xray -- interstitial infiltrates CT scan showed patchy consolidation of lower lobes, no PE Started on doxycycline + ceftriaxone, continue with doxycycline oral and cefdinir oral to complete 7-10 day course of antibiotics for CAP. Maxine Harrison, PharmD, BCOP MAXINE HARRISON Oct 26, 2018 11:30
[2018-10-26 11:49] VITALS: BP 142/92
[2018-10-26] MEDS ORDERED: DOXY-179 PO (12:25)
[2018-10-26] MEDS ORDERED: CEF300 PO (12:26)
--- NOTE | 2018-10-26 12:37 | Hospitalist Depart ---
Discharge Summary Reason for Hosp/Final Diag: (1) Syncope Status: Acute Hospital Course & Plan: Will admit to telemetry to monitor for any dysrhythmias, echocardiogram pending. Consider outpatient halter. (2) Atypical pneumonia Status: Acute Hospital Course & Plan: Started on ceftriaxone and doxycycline. Converted to cefdinir and doxycycline for discharge. Home O2 arranged. (3) Hypoxia Status: Acute Hospital Course & Plan: Due to atypical pneumonia and possible underlying COPD. Started on supplemental O2 will need reevaluation as acute process resolves. (4) Coronary artery disease Status: Chronic Hospital Course & Plan: Will continue his metoprolol, statin, and Plavix. (5) Essential hypertension Status: Chronic Hospital Course & Plan: He will be continued on the metoprolol, lisinopril, nifedipine. Monitor BPs. (6) Hyperlipidemia Status: Chronic Hospital Course & Plan: Continue atorvastatin. Departure Weight (Pounds): 198 Result Diagram: 10/26/1851610/26/18516 Condition: Improved Discharge: Home Discharge Instructions Home Meds Active Scripts Cefdinir 300 Mg Cap (OMNICEF 300 MG CAP (OR EQUIV)) 300 Mg Cap, 300 MG PO BID for 9 Days, #18 CAP Prov:LADAN JOSHI DO 10/26/18 Doxycycline Hyclate (DOXYCYCLINE HYCLATE) 100 Mg Tablet, 100 MG PO BID for 9 Days, #18 TAB Prov:RICO العراقيLADAN 10/26/18 Atorvastatin Calcium (ATORVASTATIN CALCIUM) 20 Mg Tablet, 1 TAB PO QDAY, #90 TAB 3 Refills patient needs to schedule an appointment for further refills Prov:GAVIN BARNHART MD 10/30/17 Metoprolol Succ 200 Mg Xl Tab (METOPROLOL SUCCINATE 200 MG) 200 Mg Tab.er.24h, 1 TAB PO QDAY, #90 TAB 3 Refills Prov:GAVIN BARNHART MD 10/30/17 Clopidogrel Bisulfate (PLAVIX) 75 Mg Tablet, 1 TAB PO QDAY, #90 TAB 3 Refills Prov:GAVIN BARNHART MD 10/30/17 Reported Medications Pantoprazole Sodium (PANTOPRAZOLE SODIUM) 40 Mg Tablet.dr, 40 MG PO QDAY, TAB.SR 10/26/18 Lisinopril (LISINOPRIL) 10 Mg Tablet, 5 MG PO BID, TAB 10/26/18 Discontinued Scripts Lisinopril (LISINOPRIL) 20 Mg Tablet, 20 MG PO BID, #180 TAB 3 Refills Prov:GAVIN BARNHART MD 10/30/17 Diet: Low Cholesterol & Sat Fat Activity: As Tolerated Special Instructions: You were started on 2 antibiotics for pneumonia. Follow up with primary care to evaluate need for oxygen as you get better. Copies to: [facility]; GAVIN BARNHART MD ; Venous Thromboembolism Antithrombotics Is Pt On Any Antithrombotics?: Yes LADAN JOSHI DO Oct 26, 2018 12:37
[2018-10-26] MEDS ORDERED: LISINOPRIL 5 MG TAB PO SCH (21:00)
== END 2018-10-26 14:25 | disposition home or self-care (01) | DRG 194 ==
LOC: ER 11:22 → MED 16:40
PROVIDERS: ADMIT Internal Medicine; ATTEND Internal Medicine
DX: J18.9 Pneumonia, unspecified organism (principal); J44.0 Chronic obstructive pulmonary disease with (acute) lower respiratory infection; R09.02 Hypoxemia; I25.10 Atherosclerotic heart disease of native coronary artery without angina pectoris; I10 Essential (primary) hypertension; I71.4 Abdominal aortic aneurysm, without rupture; E78.5 Hyperlipidemia, unspecified; R55 Syncope and collapse; M1A.9XX0 Chronic gout, unspecified, without tophus (tophi); I25.2 Old myocardial infarction; Z23 Encounter for immunization; Z95.1 Presence of aortocoronary bypass graft; Z87.891 Personal history of nicotine dependence; Z90.49 Acquired absence of other specified parts of digestive tract
CPT/HCPCS: 36415; 70450; 71045; 71275; 72125; 74177; 81001; 82040; 82140; 82247; 82310; 82374; 82435; 82565; 82947; 83690; 83735; 83880; 84075; 84132; 84155; 84295; 84450; 84460; 84484; 84520; 85025; 85379; 90471; 90715; 93005; 93306; 96361; 96374; 96375; 99285; J0696; J1650; J1940; J2930; J3480; J3490; J7030; J7040; J7050; Q9967

== ENCOUNTER → 2018-11-15 | Outpatient (CLI) | payer MEDICARE, BC ==
[2018-10-26 08:19] VITALS: BMI 28.4
[~2018-11-15] MED LIST changes: +CEF300 PO; +CYAN25004 PO; +DOXY-179 PO; +FOLI0.8C PO; +NIFE-15 PO
[2018-11-15 10:46] LABS: PLATELET COUNT, AUTOMATED 274 K/uL (150-450)
[2018-11-15 11:44] LABS: LDL CHOLESTEROL 79 mg/dl
== END ==
LOC: LAB 10:20
PROVIDERS: ATTEND Internal Medicine
DX: I71.9 Aortic aneurysm of unspecified site, without rupture (principal); I25.10 Atherosclerotic heart disease of native coronary artery without angina pectoris; I10 Essential (primary) hypertension; E78.5 Hyperlipidemia, unspecified; J18.9 Pneumonia, unspecified organism; R71.8 Other abnormality of red blood cells
CPT/HCPCS: 82040; 82247; 82310; 82374; 82435; 82465; 82565; 82607; 82746; 82947; 83718; 84075; 84132; 84155; 84295; 84443; 84450; 84460; 84478; 84520; 85025

== ENCOUNTER → 2018-12-17 | Outpatient (CLI) | payer MEDICARE, BC ==
[2018-10-26 08:19] VITALS: BMI 28.4
[~2018-12-17] MED LIST changes: +GUAI120L3 PO
[2018-12-17 13:51] LABS: PLATELET COUNT, AUTOMATED 221 K/uL (150-450)
--- NOTE | 2018-12-17 16:00 | RADIOLOGY IMAGING REPORT ---
FACILITY: [facility] PATIENT NAME: Etienne Arriaza : 1950 MR: [id number] V: [id number] EXAM DATE: ORDERING PHYSICIAN: ISIAH LEY TECHNOLOGIST: Location: [facility] [place] Patient: Etienne Arriaza : 1950 Visit/Account:[id number] Date of Sevice: 12/17/2018 CT ANGIOGRAM OF THE CHEST WITH INTRAVENOUS CONTRAST, PE PROTOCOL DATE OF EXAM: 12/17/2018 13:38 COMPARISON: Chest radiograph October 25, 2018. INDICATION: Coughing up blood x1 week. TECHNIQUE: Contrast enhanced chest CT performed during the injection of 150 ml of Isovue-370. Three- dimensional (MIP) reconstructions were performed. FINDINGS: Negative for pulmonary arterial embolus. There is extensive reticulation in the lower lobes at the tricia ng bases and marked septal thickening. There are smaller areas of scattered cystic change at the lung apices. Thyroid: Unremarkable. Thoracic inlet: No thoracic inlet adenopathy. Heart and great vessels: Heart size is within normal limits. Prominent coronary atherosclerosis and aortic arch atherosclerosis. Mediastinum and abhilash: No adenopathy. Lungs and pleura: As above. Breast and axilla: Minimal gynecomastia. Bones and soft tissues: No acute osseous abnormality. Diffusely decreased bone density. Moderate mul tilevel degenerative findings. Upper abdomen: Liver parenchymal density is diffusely decreased. IMPRESSION: 1. Marked reticulation and septal thickening at the lung bases is nonspecific. ARDS, infection (atyp ical or otherwise), and pulmonary alveolar proteinosis are among the multiple possible differential c onsiderations. Overall, the degree of opacity does appear somewhat progressed since October 25, 2018. 2. Negative for pulmonary arterial embolus. Results were called to Dr. ISIAH LEY at 12/17/2018 3:50 PM. One of the following dose optimization techniques was utilized in the performance of this exam: Autom ated exposure control; adjustment of the mA and/or kV according to the patient's size; or use of an i terative reconstruction technique. Specific details can be referenced in the facility's radiology C T exam operational policy. Report Dictated By: Jose Barajas MD at 12/17/2018 3:35 PM Report E-Signed By: Jose Barajas MD at 12/17/2018 3:56 PM WSN:[id number]
== END ==
LOC: LAB 13:27
PROVIDERS: ATTEND Nurse Practitioner Primary Care
DX: R04.2 Hemoptysis (principal)
CPT/HCPCS: 36415; 71275; 85025; Q9967; 82040; 82247; 82310; 82374; 82435; 82565; 82947; 84075; 84132; 84155; 84295; 84450; 84460; 84520

== ENCOUNTER → 2019-03-02 | Outpatient (CLI) | payer MEDICARE, BC ==
[2018-10-26 08:19] VITALS: BMI 28.4
== END ==
LOC: LAB 09:38
PROVIDERS: ATTEND Internal Medicine Cardiovascular Disease
DX: I73.9 Peripheral vascular disease, unspecified (principal); R06.09 Other forms of dyspnea; E78.00 Pure hypercholesterolemia, unspecified; I10 Essential (primary) hypertension
CPT/HCPCS: 36415; 82040; 82247; 82310; 82374; 82435; 82565; 82947; 83880; 84075; 84132; 84155; 84295; 84450; 84460; 84520